=== PATIENT | female | born 1970 | race Caucasian/White ===

== ENCOUNTER → 2020-07-27 | Outpatient (CLI) | payer BC ==
[~2020-07-27] MED LIST: BENTYL20 MG PO; CIPR500 PO; CIPRO500 MG PO; DOCU100 PO; ENOX40I SC; ENOX80I SC; ENOX80I SQ; FERRALET 90 DU1 EACH PO; Flagyl500 MG PO; K-Dur20 MEQ PO; OXYACE5T PO; OXYACE7.5T PO; OXYC5 PO; PROBIOTIC1 EACH PO; PROM25 PO; Pepcid40 MG PO; Percocet 5-3251 EACH PO; SACC250C PO; SULTRIDS PO; VITAMIN B12-FO1 EACH PO; Valcyte450 MG PO; Verotin-Gr Cap1 EACH PO; XARELTO20 MG PO; Zofran Odt4 MG SL
[2020-07-28 18:08] LABS: HPV 16 Negative (Negative); HPV 18 Negative (Negative); HPV OTHER HR TYPES Negative (Negative)
== END ==
LOC: LAB SHORT 15:27
PROVIDERS: Advanced Practice Midwife
DX: Z01.419 Encounter for gynecological examination (general) (routine) without abnormal findings (principal)
CPT/HCPCS: 87624; G0123